=== PATIENT | female | born 1975 | race Two or more races ===

== ENCOUNTER 2016-04-28 17:33 | Emergency (ER) | payer MEDICAID ==
[2016-04-28 17:46] VITALS: BP 122/86; PULSE 80; RESP 16; TEMP 98.1; O2SAT 97
--- NOTE | 2016-04-28 18:01 | EDPHY ---
H & P Stated Complaint: L kidney pain;thinks poss kidney stone;+n/v Time Seen by Provider: 04/28/16 17:51 HPI/ROS: CHIEF COMPLAINT: Left flank pain HISTORY OF PRESENT ILLNESS: The patient presents to the ED with complaints of acute left flank pain that began 3 days ago. The patient did report antecedent symptoms of dysuria. The patient denies fever. She has remote history of nephrolithiasis. The patient reports her last kidney stone was at least 5 years ago in the past. She reports that the symptoms today are more reminiscent of pyelonephritis. The patient denies significant improvement with ibuprofen. The patient denies prior surgical history. The patient takes no medications or allergies. The patient does not have a primary care provider. She rates her pain is an 8/10. REVIEW OF SYSTEMS: A comprehensive 10 point review of systems is otherwise negative aside from elements mentioned in the history of present illness. Source: Patient - Personal History LMP (Females 10-55): 1-7 Days Ago Current Tetanus Diphtheria and Acellular Pertussis (TDAP): Yes - Medical/Surgical History Hx Renal Disease: Yes Other PMH: kidney stones. ureteral surg as kid. recurrent bladder infections - Social History Smoking Status: Current every day smoker - Physical Exam Exam: General Appearance: Alert, no distress Eyes: Pupils equal and round no pallor or injection ENT, Mouth: Mucous membranes moist Respiratory: There are no retractions, lungs are clear to auscultation Cardiovascular: Regular rate and rhythm Gastrointestinal: Abdomen is soft and nontender, no masses, bowel sounds normal Back: Left CVA tenderness Neurological: A&O, normal motor function, normal sensory exam, normal cranial nerves Skin: Warm and dry, no rashes Musculoskeletal: Neck is supple nontender Extremities: symmetrical, full range of motion Constitutional: Initial Vital Signs Temperature (C) 36.7 C 04/28/16 17:40 Heart Rate 80 04/28/16 17:40 Respiratory Rate 16 04/28/16 17:40 Blood Pressure 122/86 H 04/28/16 17:40 O2 Sat (%) 97 04/28/16 17:40 O2 Delivery Mode Room Air Allergies/Adverse Reactions: No Known Allergies Allergy (Unverified 04/28/16 17:46) Home Medications: Medication Instructions Recorded NK [No Known Home Meds] 04/28/16 Medical Decision Making - Diagnostics Imaging: CT abdomen pelvis, without contrast: Negative for obvious ureterolithiasis, hydronephrosis or other explanation of left-sided flank pain. Images reviewed by myself and discussed with radiologist Dr. John Paul Stephens. ED Course/Re-evaluation: The patient presents to the ED with left flank pain in the setting of recent symptoms of cystitis. She is nontoxic and well-appearing. The patient received 2 Wayne tablets in the ED. The patient's urinalysis demonstrates no evidence of an infection. Based upon this, a CT scan of the abdomen pelvis was obtained which demonstrates no evidence of ureterolithiasis or nephrolithiasis. Patient will be discharged home with instructions to continue ibuprofen. She is referred to our on-call urologist for evaluation of any ongoing symptoms. Differential Diagnosis: Differential diagnosis considered includes pyelonephritis, ureterolithiasis, nephrolithiasis - Data Points Laboratory Results: 04/28/16 04/28/16 17:58 17:00 Urine Color YELLOW Urine Appearance HAZY Urine pH 7.0 (5.0-7.5) Ur Specific [place] 1.008 (1.002-1.030) Urine Protein NEGATIVE (NEGATIVE) Urine Ketones NEGATIVE (NEGATIVE) Urine Blood NEGATIVE (NEGATIVE) Urine Nitrate NEGATIVE (NEGATIVE) Urine Bilirubin NEGATIVE (NEGATIVE) Urine Urobilinogen NEGATIVE EU EU (0.2-1.0) Ur Leukocyte Esterase NEGATIVE (NEGATIVE) Ur Culture Indicated? NOT INDICATED (NI) Urine Glucose NEGATIVE (NEGATIVE) Urine Test NEGATIVE Medications Given: Discontinued Medications Hydrocodone Bitart/Acetaminophen (Wayne 10/325) 1 tab PO EDNOW ONE Stop: 04/28/16 18:04 Last Admin: 04/28/16 18:15 Dose: 1 tab Departure - Departure Disposition: Home, Routine, Self-Care Clinical Impression: Left flank pain Condition: Good Instructions: Flank Pain (ED) Additional Instructions: 1. Take Ibuprofen or Motrin 600 mg by mouth three times a day. 2. Please follow up with the primary care provider you have been referred to. 3. At this point time there is no evidence of an obvious kidney stone or kidney infection explaining your symptoms. Referrals: [facility],. [Clinic] - As per Instructions
[2016-04-28] MEDS ORDERED: HYDROCODONE/APAP 10/325 TAB PO ONE (18:03)
[2016-04-28 18:07] LABS: COLOR YELLOW; LEUKOCYTE ESTERASE,URINE NEGATIVE (NEGATIVE); NITRITE,URINE NEGATIVE (NEGATIVE)
[2016-04-28] MEDS ORDERED: HYDROCODONE/APAP 5/325 TAB ONE (18:13)
== END 2016-04-28 20:30 | disposition home or self-care (01) ==
DX: R10.9 Unspecified abdominal pain (principal); F17.200 Nicotine dependence, unspecified, uncomplicated